=== PATIENT | male | born 1935 | race Caucasian/White ===

== ENCOUNTER 2018-10-13 11:44 | Day surgery (SDC) | payer MEDICARE, OTHER ==
[~2018-10-13 11:44] MED LIST: KETOROLAC TROMETHAMINE 0.45% 4 DROP/0.4 ML DROPERETTE OS PRN
[2018-10-13] MEDS: BESIFLOXACIN HCL 0.6% OPH SUSP 5 ML BOTTLE OS PRN ×4 (12:04→12:51)
[2018-10-13] MEDS: TROPICAMIDE 1% OPH SOLN 3 ML OS PRN ×3 (12:04→12:24)
[2018-10-13] MEDS: CYCLOPENTOLATE 0.2%/PHENYLEPHRINE 1% OPH SOLN 2 ML OS PRN ×3 (12:04→12:24)
[2018-10-13] MEDS: TETRACAINE HCL 0.5% OPH SOLN 4 ML OS PRN ×4 (12:05→12:29)
[2018-10-13] MEDS: LIDOCAINE 1% INJ-PF (10 MG/ML) 30 ML SDV ONE ×2 (12:36)
[2018-10-13] MEDS: CHONDR SU A NA/HYALUR INTRAOC KIT (SURGICARE) ONE ×2 (12:36)
[2018-10-13] MEDS: EPINEPHRINE INJ/PF 1 MG/1 ML AMPULE ONE ×2 (12:36)
[2018-10-13] MEDS: DORZOLAMIDE HCL 2%/TIMOLOL MALEAT 0.5% OPH SOLN 10 ML OS PRN ×2 (12:51)
--- NOTE | 2018-10-14 08:40 | [facility] OPERATIVE REPORT E ---
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 PROCEDURE PERFORMED: Phacoemulsification with posterior intraocular lens implant in the left eye. SURGEON: HIEU VAZQUEZ M.D. ANESTHESIOLOGIST: Catrachita Riddle M.D. ANESTHESIA: Topical with IV sedation and monitored anesthesia care. TISSUE TO PATHOLOGY: None. COMPLICATIONS: None. BLOOD LOSS: None. INDICATIONS FOR SURGERY: The patient is an 83-year-old male who presented to our clinic complaining of difficulty reading and driving due to blurry vision in his left eye. On examination he was found to have a best corrected visual acuity of 20/40 in the left eye. Ophthalmoscopy revealed a 2+ nuclear and 2+ cortical degeneration cataract in the left eye, with a normal-appearing cornea, retina, vitreous, and optic nerve. I discussed the findings of the exam with the patient. We discussed the risks, benefits, and alternatives of cataract extraction and intraocular lens implant in the left eye as a means of improving his vision. Risks presented to the patient include infection, bleeding, retinal detachment, possible need for additional surgery. I explained to the patient he may need to wear glasses after surgery. After our discussion, he indicated his interest in having this procedure performed by signing an informed, witnessed consent form. REPORT OF PROCEDURE: On the day of surgery, the patient was given a topical application to the left eye while in the preop holding area that consisted of 0.5% tetracaine, 1% tropicamide, and Cyclomydril along with Besivance 0.6% and Acular 0.45%. He was then taken to the operating room in a supine position in a standard eye bed. Intravenous sedation was administered, and he was prepped and draped in the standard ophthalmic fashion. Attention was directed to the left eye where a paracentesis was created at the 5:30 position at the limbus with a 15-degree blade. The anterior chamber was filled with 0.3 mL of 1% methylparaben-free lidocaine, and after 30 seconds the anterior chamber was filled with Viscoat. A 3-plane corneal incision was then made with a keratome at the 3 o'clock position at the limbus. A continuous curvilinear capsulorrhexis was then made in the anterior capsular lens with a cystotome. The lens was hydrodissected using balanced saline solution. The nucleus was removed by phacoemulsification using a [id number]-jdtkxbg technique of CDE 10.78. The posterior capsular bag was filled with viscoelastic material and a lens implant was inserted into the posterior capsular bag. The lens chosen for this case is a 1-piece acrylic lens from [employer], model ZCB00, serial number [id number]. Lens power is 21.5 diopters. The lens was removed from its package, inspected, and found to be free of defects. It was loaded into an [employer] [place] direct mail clerk. The direct mail clerk was passed through the corneal incision. The lens was advanced into the posterior capsular bag. It was centered in the bag with a Alison spatula. The viscoelastic material was then removed from the posterior capsular bag and the anterior chamber with irrigation and aspiration. The wounds were then closed by stromal hydration. They were tested with Weck-Rolanda sponges and found to have no leaks. The intraocular pressure was assessed by manual palpation and found to be within physiologic range. Drapes and speculum were removed. Periocular skin was flushed with a wet followed by dry 4 x 4 gauze. Drops of Timolol and Besivance were instilled in the inferior cul-de-sac of the left eye and it was covered with a Rosas shield. He was taken to the recovery room in good condition. He tolerated the procedure well. He was given a prescription for Durezol, BromSite, and gatifloxacin to use every 2 hours while awake in the left eye. He will return to my clinic for a follow-up eval the day after surgery. DICTATING PHYSICIAN: HIEU VAZQUEZ MD [id number] PHY#: [id number] ID: [id number] JOB#: [id number] ACCT: [id number] cc:HIEU VAZQUEZ M.D. >
== END 2018-10-13 13:38 | disposition home or self-care (01) ==
LOC: SC 11:44
PROVIDERS: ATTEND Ophthalmology
DX: H25.13 Age-related nuclear cataract, bilateral (principal); H16.223 Keratoconjunctivitis sicca, not specified as Sjogren's, bilateral; E78.00 Pure hypercholesterolemia, unspecified; M79.7 Fibromyalgia; I10 Essential (primary) hypertension; Z79.899 Other long term (current) drug therapy; Z79.82 Long term (current) use of aspirin
CPT/HCPCS: 66984; V2632; J3490 ×3; A9270; J0171; 142

== ENCOUNTER 2020-01-01 10:24 | Day surgery (SDC) | payer MEDICARE, OTHER ==
[~2020-01-01 10:24] MED LIST changes: +CHONDR SU A NA/HYALUR INTRAOC KIT (SURGICARE) ONE; +EPINEPHRINE INJ/PF 1 MG/1 ML AMPULE ONE; +FENTANYL CITRATE INJ/PF 100 MCG/2 ML AMPUL ONE; +KETOROLAC TROMETHAMINE 0.45% 4 DROP/0.4 ML DROPERETTE OD PRN; -KETOROLAC TROMETHAMINE 0.45% 4 DROP/0.4 ML DROPERETTE OS PRN; +LIDOCAINE 1%/PHENYLEPHRINE 1.5% 1 ML VIAL ONE
[2020-01-01] MEDS ORDERED: MIDAZOLAM 2 MG/2 ML INJ ONE (11:42)
[2020-01-01] MEDS: TETRACAINE HCL 0.5% OPH SOLN 4 ML OD PRN ×3 (12:04→12:55)
[2020-01-01] MEDS: TROPICAMIDE 1% OPH SOLN 15 ML OD PRN ×3 (12:04→12:40)
[2020-01-01] MEDS: CYCLOPENTOLATE 0.2%/PHENYLEPHRINE 1% OPH SOLN 2 ML OD PRN ×3 (12:05→12:40)
[2020-01-01] MEDS: BESIFLOXACIN HCL 0.6% OPH SUSP 5 ML BOTTLE OD PRN ×5 (12:05→13:14)
[2020-01-01] MEDS: DORZOLAMIDE HCL 2%/TIMOLOL MALEAT 0.5% OPH SOLN 10 ML OD PRN ×2 (13:07→13:14)
--- NOTE | 2020-01-08 18:57 | Operative Report ---
Operative Report-[facility] Operative Report: PREOPERATIVE DIAGNOSIS: Nuclear, cortical and posterior subcapsular cataract, right eye POSTOPERATIVE DIAGNOSIS: Nuclear, cortical and posterior subcapsular cataracts, right eye PROCEDURE: Phacoemulsification and posterior chamber intraocular lens implant, right eye PROCEDURE DATE: [January 01, 2020 ] SURGEON: Man Worrell MD Next FRONT END TECHNICIAN: [] ANESTHESIA: Topical with IV sedation next COMPLICATIONS: None TISSUE TO PATHOLOGY: None ESTIMATED BLOOD LOSS: None INDICATION FOR SURGERY: [Mr. Garsia is a 84 year old male] Who presents to our clinic complaining of difficulty seeing, to read and drive due to blurry vision in both eyes. On examination, she was found to have best corrected visual acuity of [20/50 ] in the right eye. Ophthalmoscopy revealed a [+2] nuclear, [+2] corneal degeneration, [+1] posterior subcapsular cataract in the right eye with normal appearing cornea, vitreous, retina and optic nerve. I discussed the findings of the exam with the patient. We discussed the risks, benefits and alternatives of cataract extraction and intraocular lens implant in the right eye as a means of improving her vision. Risks that were discussed with the patient include infection, bleeding, retinal detachment and possible need for additional surgery. The patient understands that she may need to wear glasses after surgery. After discussion, the patient indicated her interest in having this procedure performed by signing an informed witness consent form. REPORT OF PROCEDURE: On the day of surgery, the patient was given a topical application to the right eye to consist of drop of Tetracaine 0.5%, tropicamide 1%, Cyclomidril, Besivance 0.6% and Acular 0.45%. The patient was then taken to the operating room in a supine position in a standard eye bed. Intravenous sedation was administered and she was prepped and draped in the standard fashion. A timeout was performed to confirm the surgical site. Attention was directed to the right eye where a paracentesis was created at the 11:30 position at the corneal limbus with a 15 degree blade. The anterior chamber was filled with 0.3 mL of 1% methylparaben free lidocaine and after 30 seconds the anterior chamber was filled with viscoelastic material. A 3 plane corneal incision was then made at the 9 o'clock position at the cornea limbus with a keratome. A continuous curvilinear capsulorrhexis was then made in the anterior capsule of the lens with a cystotome. The lens was hydrodissected using balanced saline solution. The lens nucleus was then removed by phacoemulsification using the stop and chop technique. CDE [13.09]. The remaining cortical material was then removed from the posterior capsular bag using irrigation and aspiration. The posterior capsule bag was filled with viscoelastic material and a lens implant was inserted into the posterior capsule bag. I have chosen for this case is a one piece acrylic lens from [employer] model [[id number]], serial number [[id number]], lens power [19.5]. The lens was removed from its package, inspected and found to be free of defects it was loaded into a [employer]. The forensic engineer was passed through the temporal wound and the lens was advanced into the posterior capsular bag. The lens implant was centered in the posterior capsular bag with the Alison spatula the viscoelastic material was removed from the eye using irrigation and aspiration. The wounds were closed by stromal hydration and they were tested with the Weck-Rolanda sponges and found to have no leaks. Intraocular pressure was assessed by manual palpitation found to be with in the physiologic range. The drape and speculum were removed. Drops of Durezol, Combigan and gatifloxacin were instilled in the right eye. The patient was then taken to the recovery room in good condition. The patient tolerated the procedure very well. The patient was given a prescription for gatifloxacin, Durezol and Ilervo to use every 2 hours while awake today. She will return my clinic tomorrow for follow-up evaluation.
== END 2020-01-01 14:09 | disposition home or self-care (01) ==
LOC: SC 10:24
PROVIDERS: ATTEND Ophthalmology
DX: H25.811 Combined forms of age-related cataract, right eye (principal); H16.223 Keratoconjunctivitis sicca, not specified as Sjogren's, bilateral; Z96.1 Presence of intraocular lens; E78.00 Pure hypercholesterolemia, unspecified; Z87.891 Personal history of nicotine dependence; I10 Essential (primary) hypertension; I25.10 Atherosclerotic heart disease of native coronary artery without angina pectoris; K21.9 Gastro-esophageal reflux disease without esophagitis; F41.9 Anxiety disorder, unspecified; E66.9 Obesity, unspecified; G50.0 Trigeminal neuralgia
CPT/HCPCS: 66984; 00142; V2632; J2250; J3490 ×2; A9270; J0171; J3010; 142